=== PATIENT | female | born 1975 | race Hispanic/Latino ===

== ENCOUNTER 2019-02-02 11:37 | Emergency (ER) | payer OTHER ==
[2019-02-02 12:16] LABS: Absolute Lymphocytes (CBC) 1.5 K/uL (0.7-4.9); Basophils % 0.5 % (0-1.3); Hematocrit 40.9 % (36.0-45.0); MPV 9.3 fL (7.6-11.3); RBC Red Blood Cell Count 4.74 M/uL (3.86-4.86)
[2019-02-02 12:18] LABS: Protime INR 1.01
--- NOTE | 2019-02-02 12:23 | RAD REPORT ---
EXAM DESCRIPTION: CT - Ct Stroke Brain Wo Cont - 02/02/2019 12:13 pm CLINICAL HISTORY: Blurred vision, stroke-like symptoms, focal facial neurologic findings. CLINICAL HISTORY: None. TECHNIQUE: Axial 5 millimeter thick images of the head were obtained without IV contrast. All CT scans are performed using dose optimization technique as appropriate and may include automated exposure control or mA/KV adjustment according to patient size. FINDINGS: No intracranial hemorrhage, mass, or cerebral edema. No acute cortical based infarction. N o cortical edema or sulcal effacement. No extra-axial fluid collections. Toth matter-white matter di fferentiation is preserved. Ventricles are normal. No globe or orbital content abnormality. Mastoid air cells are clear. There is complete opacification of the left maxillary sinus with early t hickening or sclerotic changes to the sinus carbajal. Findings telephoned to the referring physician 12:18 p.m. IMPRESSION: No CT evidence of acute intracranial process. Ongoing concerns for acute CVA can be addressed with MR imaging. Chronic left maxillary sinusitis.
[2019-02-02 12:31] LABS: BUN Blood Urea Nitrogen 8 mg/dL (7-18); Bicarbonate 27 mmol/L (21-32); Creatine Phosphokinase 58 U/L (26-192); Glucose Level 163 mg/dL (74-106); Potassium 3.4 mmol/L (3.5-5.1); Sodium Level 139 mmol/L (136-145); Troponin (Emerg Dept Use Only) < 0.02 ng/mL (0.0-0.045)
--- NOTE | 2019-02-02 12:40 | RAD REPORT ---
EXAM DESCRIPTION: RAD - Chest Single View - 02/02/2019 12:28 pm CLINICAL HISTORY: Code stroke chest film, shortness of breath COMPARISON: March 2017 TECHNIQUE: AP portable chest image was obtained 1220 hours . FINDINGS: Lung volumes are low. No pulmonary edema, mass or focal infiltrate. Heart and vasculature are normal. No measurable pleural effusion and no pneumothorax. No acute bony abnormality seen. No ac estela aortic findings suspected. IMPRESSION: Shallow inspiration exam showing no acute cardiopulmonary finding.
[2019-02-02] MEDS ORDERED: CLOPIDOGREL 75 MG TABLET ONE (13:25)
--- NOTE | 2019-02-02 13:38 | EDPHYS ---
Physician Documentation [facility] Name: Andreia Claire Age: 43 yrs Sex: Female : 1975 Arrival Date: 02/02/2019 Time: 11:37 Bed 3 Private MD: ED Physician Willy Kraus HPI: 02/02 13:03 This 43 yrs old Female presents to ER via Wheelchair with complaints of rn Weakness. 13:03 The patient presents to the emergency department with weakness of the left upper rn extremity, left lower extremity, left side of the face. Onset: The symptoms/episode began/occurred yesterday. Associated signs and symptoms: Pertinent negatives: neck stiffness, loss of vision. Severity of symptoms: At their worst the symptoms were moderate in the emergency department the symptoms are unchanged. Current symptoms: paralysis or paresis, that is moderate. The patient has not experienced similar symptoms in the past. The patient has not recently seen a physician. Began at 1000 yesterday with weakness of left side of body, numbness, left facial droop. Has had stroke before, stopped taking plavix recently. Not improving so came in for eval. . CIRCULATING NURSE: 11:48 LMP N/A - Hysterectomy sr5 Historical: - Allergies: 11:48 Nubain; sr5 - PMHx: 11:48 Pneumonia; sr5 - PSHx: 11:48 Carpal Tunnel Repair; Knee surgery; Hysterectomy; ankle; Appendectomy; Cholecystectomy; sr5 - Immunization history:: Flu vaccine is not up to date. - Social history:: Smoking status: Patient/guardian denies using tobacco, never smoked. - Ebola Screening: : Patient negative for fever greater than or equal to 101.5 degrees Fahrenheit, and additional compatible Ebola Virus Disease symptoms. - Family history:: not pertinent. - Hospitalizations: : No recent hospitalization is reported. ROS: 13:03 Constitutional: Negative for fever, chills, and weight loss, Eyes: Negative for injury, rn pain, redness, and discharge, Cardiovascular: Negative for chest pain, palpitations, and edema, Respiratory: Negative for shortness of breath, cough, wheezing, and pleuritic chest pain, Abdomen/GI: Negative for abdominal pain, nausea, vomiting, diarrhea, and constipation, MS/Extremity: Negative for injury and deformity, Skin: Negative for injury, rash, and discoloration, Neuro: Negative for headache, and seizure. Exam: 13:03 Constitutional: This is a well developed, well nourished patient who is awake, alert, rn tearful Head/Face: Normocephalic, atraumatic. ENT: dry MM Cardiovascular: Regular rate and rhythm. No pulse deficits. Respiratory: No increased work of breathing, no retractions or nasal flaring. Abdomen/GI: soft, non-tender MS/ Extremity: Pulses equal, no cyanosis. Neurovascular intact. Full, normal range of motion. Equal circumference. Neuro: Awake and alert, GCS 15, oriented to person, place, time, and situation. + left lower facial droop and eneven smile. + left arm weakness with drift, LLE weakness with some effort against gravity, but rapidly falls to bed, decreased sensation to pain LUE/LLE. Vital Signs: 11:48 BP 101 / 75; Pulse 94; Resp 18; Temp 99.8; Pulse Ox 100% on R/A; Weight 81.65 kg (R); sr5 Height 5 ft. 6 in. (167.64 cm); Pain 9/10; 12:30 BP 96 / 80; Pulse 99; Resp 18; Pulse Ox 97% on R/A; vc 13:26 BP 93 / 62; Pulse 96; Resp 21 S; Pulse Ox 97% on R/A; jl7 14:30 BP 88 / 59; Pulse 93; Resp 20; Temp 99.1(O); Pulse Ox 98% on R/A; vc 15:00 BP 96 / 63; Pulse 94; Resp 20; Pulse Ox 98% on R/A; vc 11:48 Body Mass Index 29.05 (81.65 kg, 167.64 cm) sr5 NIH Stroke Scale Scores: 12:40 NIHSS Score: 6 vc 13:02 NIHSS Score: 6 rn MDM: 11:52 Patient medically screened. rn 12:19 ED course: No acute findings on CT brain. Symptoms present since yesterday, no rn indication for TPA at this point.. 13:20 ED course: Pt without improvement of symptoms, ct head negative, no neuro here, will turntable operator to [place] for neuro, she requests adan taylor, her neurologist is Dr. kwok. . 13:35 Data reviewed: vital signs, nurses notes, lab test result(s), EKG, radiologic studies, rn CT scan, and as a result, I will admit patient. Counseling: I had a detailed discussion with the patient and/or guardian regarding: the historical points, exam findings, and any diagnostic results supporting the discharge/admit diagnosis, lab results, radiology results, the need to transfer to another facility, [facility] does not immediately have the required specialist. Response to treatment: There is no appreciated change of the patient's symptoms at this time. ED course: Accepted for transfer to [facility]. . 02/02 11:59 Order name: Troponin (emerg Dept Use Only); Complete Time: 12:34 rn 02/02 11:59 Order name: CPK; Complete Time: 12:34 rn 02/02 11:59 Order name: Basic Metabolic Panel; Complete Time: 12:34 rn 02/02 11:59 Order name: CBC with Diff; Complete Time: 12:34 02/02 11:59 Order name: Protime (+inr); Complete Time: 12:34 rn 02/02 11:59 Order name: Ptt, Activated; Complete Time: 12:34 rn 02/02 11:59 Order name: CT Stroke Brain w/o Contrast; Complete Time: 12:34 rn 02/02 11:59 Order name: Stroke CXR 1 View; Complete Time: 12:50 rn 02/02 11:59 Order name: EKG; Complete Time: 12:01 rn 02/02 11:59 Order name: Accucheck; Complete Time: 12:04 rn 02/02 12:08 Order name: Glucose, Ancillary Testing; Complete Time: 12:34 EDID 02/02 13:25 Order name: Flu aa5 02/02 11:59 Order name: Cardiac monitoring; Complete Time: 12:33 rn 02/02 11:59 Order name: EKG - Nurse/Tech; Complete Time: 12:33 rn 02/02 11:59 Order name: IV Saline Lock; Complete Time: 12:33 rn 02/02 12:00 Order name: Labs collected and sent; Complete Time: 12:32 rn 02/02 12:00 Order name: NPO; Complete Time: 12:32 rn 02/02 12:00 Order name: O2 Per Protocol; Complete Time: 12:33 rn 02/02 12:00 Order name: O2 Sat Monitoring; Complete Time: 12:33 rn 02/02 12:00 Order name: Stroke Swallow Screen; Complete Time: 13:07 rn Administered Medications: 13:25 Drug: PlaVIX 75 mg Route: PO; Point of Care Testing: Blood Glucose: 11:57 Blood Glucose: 159 mg/dL; aa5 Ranges: Critical Glucose Levels:Adult <50 mg/dl or >400 mg/dl <40 mg/dl or >180 mg/dl Disposition: 02/02/19 13:37 Transfer ordered to Other Acute Care Facility. Diagnosis are Weakness, Facial weakness, Suspected ischemic stroke. - Reason for transfer: Higher level of care. - Accepting physician is Dr. Galeas. - Condition is Stable. - Problem is new. - Symptoms are unchanged. NIH Stroke Scale - NIH Stroke Score Date: 02/02/2019 Time: 12:40 Total Score = 6 1a. Level of Consciousness (LOC) - 0(Alert) 1b. Level of Consciousness (LOC) (Year \T\ Age) - 0(Both) 1c. LOC Commands (Open \T\ Closes Eyes/Fabric Separator Operator) - 0(Both) 2. Best Gaze (Lateral Gaze Paresis) - 0(Normal) 3. Visual Field Loss - 0(No visual loss) 4. Facial Palsy - 1(Minor Paralysis) 5a. Left Arm: Motor (10-second hold) - 1(Drift) 5b. Right Arm: Motor (10-second hold) - 0(No drift) 6a. Left Leg: Motor (5-second hold - always test supine) - 2(Drift, some effort against gravity) 6b. Right Leg: Motor (5-second hold - always test supine) - 0(No drift) 7. Limb Ataxia (finger/nose \T\ heel/mitchell - test with eyes open) - 0(Absent) 8. Sensory Loss (pinprick arms/legs/face) - 2(Severe to total loss) 9. Best Language: Aphasia (description/naming/reading) - 0(No aphasia) 10. Dysarthria (speech clarity - read or repeat words) - 0(Normal) 11. Extinction and Inattention (visual/tactile/auditory/spatial/personal) - 0(No abnormality) Initials: NIH Stroke Scale - NIH Stroke Score Date: 02/02/2019 Time: 13:02 Total Score = 6 1a. Level of Consciousness (LOC) - 0(Alert) 1b. Level of Consciousness (LOC) (Year \T\ Age) - 0(Both) 1c. LOC Commands (Open \T\ Closes Eyes/Fabric Separator Operator) - 0(Both) 2. Best Gaze (Lateral Gaze Paresis) - 0(Normal) 3. Visual Field Loss - 0(No visual loss) 4. Facial Palsy - 2(Partial paralysis) 5a. Left Arm: Motor (10-second hold) - 1(Drift) 5b. Right Arm: Motor (10-second hold) - 0(No drift) 6a. Left Leg: Motor (5-second hold - always test supine) - 2(Drift, some effort against gravity) 6b. Right Leg: Motor (5-second hold - always test supine) - 0(No drift) 7. Limb Ataxia (finger/nose \T\ heel/mitchell - test with eyes open) - 0(Absent) 8. Sensory Loss (pinprick arms/legs/face) - 1(Mild to moderate loss) 9. Best Language: Aphasia (description/naming/reading) - 0(No aphasia) 10. Dysarthria (speech clarity - read or repeat words) - 0(Normal) 11. Extinction and Inattention (visual/tactile/auditory/spatial/personal) - 0(No abnormality) Initials: rn Signatures: Dispatcher [employer] EDWilly Tan MD MD rn Resecker, Poncho RN RN sr5 Ellen Gaxiola RN RN vc Corrections: (The following items were deleted from the chart) 13:45 13:37 02/02/2019 13:37 Transfer ordered to Other Acute Care Facility. Diagnosis rn is Weakness; Facial weakness; Suspected ischemic stroke. Reason for transfer: Higher level of care. Accepting physician is . Condition is Stable. Problem is new. Symptoms are unchanged. rn 15:14 13:45 02/02/2019 13:37 Transfer ordered to Other Acute Care Facility. Diagnosis vc is Weakness; Facial weakness; Suspected ischemic stroke. Reason for transfer: Higher level of care. Accepting physician is Dr. Galeas. Condition is Stable. Problem is new. Symptoms are unchanged. rn
--- NOTE | 2019-02-02 13:38 | ER ---
Nurse's Notes [facility] Name: Andreia Claire Age: 43 yrs Sex: Female : 1975 Arrival Date: 02/02/2019 Time: 11:37 Bed 3 Private MD: Diagnosis: Weakness;Facial weakness;Suspected ischemic stroke Presentation: 02/02 11:40 Presenting complaint: Patient states: "feel like I'm gonna pass out and have a lot of sr5 pressure in my face" s/s started yesterday. Also reports "blurry vision". Denies recent falls, when asked about fever responded "the bed sheets were soaking wet". Clear speech, equal lamination spinner, unequal smile, able to raise eye brows equally. denies V/D. Transition of care: patient was not received from another setting of care. No acute neurological deficit is noted. An acute neurological deficit is present. The charge nurse has been notified. Onset of symptoms was February 01, 2019. Risk Assessment: Do you want to hurt yourself or someone else? Patient reports no desire to harm self or others. Initial Sepsis Screen: Does the patient meet any 2 criteria? HR > 90 bpm. Does the patient have a suspected source of infection? No. Patient's initial sepsis screen is negative. Care prior to arrival: None. 11:40 Method Of Arrival: Wheelchair sr5 11:40 Acuity: DUKE 2 sr5 12:00 The patients blood glucose was checked prior to arriving to the hospital and was found vc to be hyperglycemic. The patients blood glucose has been rechecked and is now normal. Triage Assessment: 11:48 The onset of the patients symptoms was February 01, 2019 at 10:00. General: Appears sr5 ill, Behavior is calm, cooperative. Pain: Complains of pain in right amish Pain does not radiate. Pain currently is 9 out of 10 on a pain scale. Quality of pain is described as pressure, Pain began 1 day ago. Is continuous. EENT: Reports blurred vision. Neuro: Reports blurred vision headache feels like "gonna pass out". TECHNICAL AGRONOMIST: 11:48 LMP N/A - Hysterectomy sr5 Stroke Activation: Symptom onset > 6 hours Physician: Stroke Attending; Name: ; Notified At: ; Arrived At: Physician: Chief Stroke Resident; Name: ; Notified At: ; Arrived At: Physician: Stroke Resident; Name: ; Notified At: ; Arrived At: Physician: ED Attending; Name: ; Notified At: ; Arrived At: Physician: ED Resident; Name: ; Notified At: ; Arrived At: Historical: - Allergies: 11:48 Nubain; sr5 - PMHx: 11:48 Pneumonia; sr5 - PSHx: 11:48 Carpal Tunnel Repair; Knee surgery; Hysterectomy; ankle; Appendectomy; Cholecystectomy; sr5 - Immunization history:: Flu vaccine is not up to date. - Social history:: Smoking status: Patient/guardian denies using tobacco, never smoked. - Ebola Screening: : Patient negative for fever greater than or equal to 101.5 degrees Fahrenheit, and additional compatible Ebola Virus Disease symptoms. - Family history:: not pertinent. - Hospitalizations: : No recent hospitalization is reported. Screenin:40 Abuse screen: Denies threats or abuse. Nutritional screening: No deficits noted. vc Tuberculosis screening: No symptoms or risk factors identified. Fall Risk Gait- Normal/Bed Rest/Wheelchair (0 pts). Assessment: 12:04 Reassessment: Patient to CT via stretcher. vc 12:04 VAN Scoring: Arm Drift: Minor drift vc 12:20 General: Appears in no apparent distress. uncomfortable, Behavior is cooperative, vc anxious. Pain: Complains of pain in generalized body pain. Neuro: Level of Consciousness is awake, alert, obeys commands, Oriented to person, place, time, Trace Evidence Technician are weak on left Weakness in right Reports blurred vision paresthesias since 1000 am on 02/01/2019. Cardiovascular: Patient's skin is warm and dry. Respiratory: Airway is patent Respiratory effort is even, unlabored. GI: No signs and/or symptoms were reported involving the gastrointestinal system. : No signs and/or symptoms were reported regarding the genitourinary system. EENT: left sided facial drooping. Derm: Skin is intact, is healthy with good turgor. Musculoskeletal: Range of motion: intact in all extremities. Musculoskeletal: Range of motion: limited in left side. 12:40 T-PA (Activase) Screening: Contraindications: Patient reports onset of signs and vc symptoms of stroke greater than 6 hours ago: Yes. 12:40 Patient has been NPO before screening. The patient is alert, and able to follow commands. The patient does not exhibit slurred or garbled speech. The patient is not exhibiting difficulty speaking. The patient does not exhibit difficulty understanding words. The patient is able to swallow own secretions with no drooling or need for suction. Patient tolerated one teaspoon of water. No drooling, immediate coughing, gurgling, or clearing of the throat was noted. The patient passed the bedside swallow screening. Oral medications may be given as ordered. Contact Physician for further diet orders. 12:40 The patient tolerated 90mL of water. No drooling, immediate coughing, gurgling, or vc clearing of the throat was noted. 12:42 Provider notified of bedside swallow screening results: Willy Kraus MD. 13:45 Reassessment: Patient is alert, oriented x 3, equal unlabored respirations, skin vc warm/dry/pink. Patient is resting with eyes closed, chest rising evenly. No signs or symptoms of distress. 14:56 Reassessment: Attempted to call report to [facility], will try again. 15:25 Reassessment: Attempted to call report to [facility], no response, called the transfer center, awaiting call back. 15:30 Reassessment: Nely from [facility] returned call for report. 15:44 Reassessment: EMS here to receive patient. Reassessment: Report given to SOFYA Mckay at [facility]. Reassessment:. Vital Signs: 11:48 BP 101 / 75; Pulse 94; Resp 18; Temp 99.8; Pulse Ox 100% on R/A; Weight 81.65 kg (R); sr5 Height 5 ft. 6 in. (167.64 cm); Pain 9/10; 12:30 BP 96 / 80; Pulse 99; Resp 18; Pulse Ox 97% on R/A; vc 13:26 BP 93 / 62; Pulse 96; Resp 21 S; Pulse Ox 97% on R/A; jl7 14:30 BP 88 / 59; Pulse 93; Resp 20; Temp 99.1(O); Pulse Ox 98% on R/A; vc 15:00 BP 96 / 63; Pulse 94; Resp 20; Pulse Ox 98% on R/A; vc 11:48 Body Mass Index 29.05 (81.65 kg, 167.64 cm) sr5 NIH Stroke Scale Scores: 12:40 NIHSS Score: 6 vc 13:02 NIHSS Score: 6 biology internship Course: 11:37 Patient arrived in ED. rg4 11:48 Triage completed. sr5 11:48 Arm band placed on right wrist. Patient placed in an exam room. sr5 11:52 Willy Kraus MD is Attending Physician. rn 12:00 Patient has correct armband on for positive identification. Placed in gown. Bed in low vc position. Call light in reach. Side rails up X2. 12:00 Initial lab(s) drawn, by me, sent to lab. Inserted saline lock: 18 gauge in left aa5 antecubital area, using aseptic technique. Blood collected. 12:03 Ellen Gaxiola RN is Primary Nurse. vc 12:04 Troponin (emerg Dept Use Only) Sent. vc 12:04 CPK Sent. vc 12:04 Basic Metabolic Panel Sent. vc 12:04 CBC with Diff Sent. vc 12:04 Protime (+inr) Sent. vc 12:04 Ptt, Activated Sent. vc 12:15 CT Stroke Brain w/o Contrast In Process Unspecified. EDMS 12:23 EKG done, by senior controls technician. reviewed by Willy Kraus MD. at1 12:28 X-ray completed. Portable x-ray completed in exam room. Patient tolerated procedure mh1 well. 12:29 Stroke CXR 1 View In Process Unspecified. EDMS 13:24 initiated a transfer with Matilda from the [facility]. eb 13:31 connected the neurologist sanitation supervisor for [facility] with Dr. Kraus for patient transfer eb consultation. 13:51 administrative approval given by Matilda Stallworth / patient has bee accepted to [facility] Neuro IMU bed 729/ Mayelin Sol has accepted the patient in transfer/ report to be called to [phone]. 15:14 No provider procedures requiring assistance completed. Patient transferred, IV remains vc in place. Administered Medications: 13:25 Drug: PlaVIX 75 mg Route: PO; vc Point of Care Testing: Blood Glucose: 11:57 Blood Glucose: 159 mg/dL; aa5 Ranges: Outcome: 13:37 ER care complete, transfer ordered by . rn 15:13 Transferred by ground EMS to [facility]. vc 15:13 Condition: good 15:13 Instructed on the need for transfer. 15:14 Patient left the ED. NIH Stroke Scale - NIH Stroke Score Date: 02/02/2019 Time: 12:40 Total Score = 6 1a. Level of Consciousness (LOC) - 0(Alert) 1b. Level of Consciousness (LOC) (Year \\T\\ Age) - 0(Both) 1c. LOC Commands (Open \\T\\ Closes Eyes/Director Of Channel Marketing) - 0(Both) 2. Best Gaze (Lateral Gaze Paresis) - 0(Normal) 3. Visual Field Loss - 0(No visual loss) 4. Facial Palsy - 1(Minor Paralysis) 5a. Left Arm: Motor (10-second hold) - 1(Drift) 5b. Right Arm: Motor (10-second hold) - 0(No drift) 6a. Left Leg: Motor (5-second hold - always test supine) - 2(Drift, some effort against gravity) 6b. Right Leg: Motor (5-second hold - always test supine) - 0(No drift) 7. Limb Ataxia (finger/nose \\T\\ heel/mitchell - test with eyes open) - 0(Absent) 8. Sensory Loss (pinprick arms/legs/face) - 2(Severe to total loss) 9. Best Language: Aphasia (description/naming/reading) - 0(No aphasia) 10. Dysarthria (speech clarity - read or repeat words) - 0(Normal) 11. Extinction and Inattention (visual/tactile/auditory/spatial/personal) - 0(No abnormality) Initials: NIH Stroke Scale - NIH Stroke Score Date: 02/02/2019 Time: 13:02 Total Score = 6 1a. Level of Consciousness (LOC) - 0(Alert) 1b. Level of Consciousness (LOC) (Year \\T\\ Age) - 0(Both) 1c. LOC Commands (Open \\T\\ Closes Eyes/Director Of Channel Marketing) - 0(Both) 2. Best Gaze (Lateral Gaze Paresis) - 0(Normal) 3. Visual Field Loss - 0(No visual loss) 4. Facial Palsy - 2(Partial paralysis) 5a. Left Arm: Motor (10-second hold) - 1(Drift) 5b. Right Arm: Motor (10-second hold) - 0(No drift) 6a. Left Leg: Motor (5-second hold - always test supine) - 2(Drift, some effort against gravity) 6b. Right Leg: Motor (5-second hold - always test supine) - 0(No drift) 7. Limb Ataxia (finger/nose \\T\\ heel/mitchell - test with eyes open) - 0(Absent) 8. Sensory Loss (pinprick arms/legs/face) - 1(Mild to moderate loss) 9. Best Language: Aphasia (description/naming/reading) - 0(No aphasia) 10. Dysarthria (speech clarity - read or repeat words) - 0(Normal) 11. Extinction and Inattention (visual/tactile/auditory/spatial/personal) - 0(No abnormality) Initials: rn Signatures: Dispatcher [employer] EDMS Lena Spain mh1 Willy Kraus MD MD rn Calderon, Audri RN RN aa5 Jeanne Winston, cable assembler and swager EKG Tat1 Poncho Garcia RN RN sr5 Talita Ulrich4 Hai Swanson RN RN jl7 Mignon Gaines Vanessa RN RN vc Corrections: (The following items were deleted from the chart) 11:55 11:40 Presenting complaint: Patient states: "feel like I'm gonna pass out and sr5 have a lot of pressure in my face" s/s started yesterday. Also reports "blurry vision". Denies recent falls, when asked about fever responded "the bed sheets were soaking wet". Clear speech, equal lamination spinner, unequal smile. denies V/D. sr5 15:01 13:51 administrative approval given by Matilda Stallworth / patient has bee accepted to [facility] Neuro IMU/ Mayelin Sol has accepted the patient in transfer/ report to be called to [phone]
[2019-02-02] MEDS ORDERED: DERMABOND SKIN ADHESIVE TOP ONE (15:59)
[2019-02-02 16:08] VITALS: TEMP 99.8
[2019-02-02 16:10] VITALS: BP 93/62; O2SAT 97
--- NOTE | 2019-02-03 13:51 | EKG ---
Test Date: 2019-02-02 Test Time: 12:21:07 Principal Account Clerk: LARRY MEASUREMENT RESULTS: Intervals: Rate: 100 MN: 138 QRSD: 74 QT: 336 QTc: 433 [place]: P: 8 MN: 138 QRS: -41 T: 30 INTERPRETIVE STATEMENTS: Normal sinus rhythm Left axis deviation Abnormal ECG Compared to ECG 04/06/2017 16:19:20 Left-axis deviation now present Electronically Signed On 02-03-19 13:47:04 RULING MACHINE OPERATOR by Lavell Abbasi
== END 2019-02-02 15:14 ==
LOC: ER 11:37
DX: R29.810 Facial weakness (principal); Z79.01 Long term (current) use of anticoagulants; Z88.8 Allergy status to other drugs, medicaments and biological substances; Z86.73 Personal history of transient ischemic attack (TIA), and cerebral infarction without residual deficits
CPT/HCPCS: 36415; 70450; 71045; 80048; 82550; 82947; 84484; 85025; 85610; 85730; 87804; 93005; 99285

== ENCOUNTER 2021-09-12 22:08 | Emergency (ER) | payer OTHER ==
--- OUTSIDE RECORDS SUMMARY | 2021-09-12 22:11 | XMS REPORT | Continuity of Care Document ---
:1975 Author Organization [facility] t Address [address] [place] [address] Dr. Morales [address] [place] [address] Care Team Providers Name Role Phone Unavailable Unavailable Unavailable Problems This patient has no known problems. Allergies, Adverse Reactions, Alerts This patient has no known allergies or adverse reactions. Medications This patient has no known medications. Procedures This patient has no known procedures. Encounters Start End Encounter Admission Attending Care Care Encounter Source Date/Time Date/Time Type Type Clinicians Facility Department ID 2019-02-03 2019-02-03 Outpatient [facility] MED [id number] [facility] 12:07:00 12:07:00 Results This patient has no known results.
[2021-09-12 23:14] LABS: Absolute Lymphocytes (CBC) 3.3 K/uL (0.7-4.9); Hematocrit 40.8 % (36.0-45.0); Lymphocytes % 27.3 % (15.3-44.8); MPV 9.2 fL (7.6-11.3)
[2021-09-12] MEDS ORDERED: NA CHLORIDE 0.9% 1,000 ML ONE (23:18)
[2021-09-12] MEDS ORDERED: MORPHINE 4 MG/ML SYR ONE (23:18)
[2021-09-12] MEDS ORDERED: ONDANSETRON 4 MG/2 ML VIAL ONE (23:18)
[2021-09-12 23:26] LABS: Urine Blood Trace-lysed (Negative); Urine Glucose Negative (Negative); Urine Protein 1+ (Negative); Urine Specific Gravity >=1.030 (1.005-1.030); Urine pH 5.5 (5.0-7.0)
[2021-09-12 23:33] LABS: Albumin 3.6 g/dL (3.4-5.0); Bilirubin Total 0.3 mg/dL (0.2-1.0); Potassium 3.3 mmol/L (3.5-5.1); Protein, Total 7.8 g/dL (6.4-8.2)
--- NOTE | 2021-09-13 01:05 | ER ---
Nurse's Notes [facility] Name: Andreia Claire Age: 45 yrs Sex: Female : 1975 Arrival Date: 09/12/2021 Time: 22:12 Bed 13 Private MD: Diagnosis: Abdominal pain, unspecified Presentation: 09/12 22:24 Chief complaint: Patient states: epigastric pain that radiates to left side of lg3 back/flank. this all started about 3 weeks ago and getting worse. Coronavirus screen: Client denies travel out of the [place] in the last 14 days. At this time, the client does not indicate any symptoms associated with coronavirus-19. Ebola Screen: No symptoms or risks identified at this time. Initial Sepsis Screen: Does the patient meet any 2 criteria? No. Patient's initial sepsis screen is negative. Does the patient have a suspected source of infection? No. Patient's initial sepsis screen is negative. Risk Assessment: Do you want to hurt yourself or someone else? Patient reports no desire to harm self or others. Onset of symptoms is unknown. 22:24 Method Of Arrival: Ambulatory lg3 22:24 Acuity: [facility] 3 lg3 Triage Assessment: 22:26 General: Appears in no apparent distress. uncomfortable, Behavior is calm, cooperative. lg3 Pain: Complains of pain in epigastric area Pain radiates to left flank. EENT: No deficits noted. No signs and/or symptoms were reported regarding the EENT system. Neuro: No deficits noted. Level of Consciousness is awake, alert, obeys commands, Oriented to person, place, time, situation. Cardiovascular: No deficits noted. Denies chest pain, shortness of breath, Capillary refill < 3 seconds Clubbing of nail beds is absent JVD is absent Patient's skin is warm and dry. Respiratory: No deficits noted. Airway is patent Trachea midline Respiratory effort is even, unlabored, Respiratory pattern is regular, symmetrical. GI: Abdomen is round non-distended, Reports upper abdominal pain, cramping, epigastric pain. : No deficits noted. No signs and/or symptoms were reported regarding the genitourinary system. Derm: No deficits noted. No signs and/or symptoms reported regarding the dermatologic system. Skin is intact, is healthy with good turgor, Skin is dry, Skin temperature is warm. Musculoskeletal: No deficits noted. No signs and/or symptoms reported regarding the musculoskeletal system. Circulation, motion, and sensation intact. Range of motion: intact in all extremities. 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 - Social history:: Smoking status: Patient denies any tobacco usage or history of. Patient/guardian denies using alcohol, street drugs. Screenin/06 01:36 Abuse screen: Denies threats or abuse. Nutritional screening: No deficits noted. ll3 Tuberculosis screening: No symptoms or risk factors identified. Fall Risk None identified. Assessment: 09/12 22:40 General: Appears uncomfortable, Behavior is calm, cooperative. Pain: Complains of pain ll3 in epigastric area Pain radiates to back Pain currently is 6 out of 10 on a pain scale. at worst was 10 out of 10 on a pain scale. Pain began 3 weeks ago, pain got worse 3 days ago. Neuro: Level of Consciousness is awake, alert, obeys commands, Oriented to person, place, time, situation. Respiratory: Respiratory effort is even, unlabored, Respiratory pattern is regular, symmetrical. GI: Abdomen is round non-distended, Reports epigastric pain, nausea, Patient currently denies constipation, diarrhea, vomiting. Derm: Skin is pink, warm \T\ dry. 09/13 00:10 Reassessment: No changes from previously documented assessment. Patient and/or family ll3 updated on plan of care and expected duration. Pain level reassessed. Patient is alert, oriented x 3, equal unlabored respirations, skin warm/dry/pink. Vital Signs: 09/12 22:24 BP 138 / 98; Pulse 94; Resp 18 S; Temp 98.7(O); Pulse Ox 100% on R/A; Weight 81.65 kg lg3 (R); Height 5 ft. 2 in. (157.48 cm) (R); Pain 8/10; 23:30 BP 142 / 88; Pulse 85; Resp 17; Pulse Ox 100% on R/A; ll3 08 00:41 BP 139 / 87; Pulse 80; Resp 18; Pulse Ox 100% on R/A; ll3 09/12 22:24 Body Mass Index 32.92 (81.65 kg, 157.48 cm) lg3 ED Course: 09/12 22:12 Patient arrived in ED. bp1 22:26 Triage completed. lg3 22:26 Arm band placed on left wrist. lg3 22:41 Thomas Novak NP is PHCP. pm1 22:41 Doni Billy MD is Attending Physician. pm1 23:08 Inserted saline lock: 22 gauge in right antecubital area, using aseptic technique. oe Blood collected. 23:20 Charly Landers, RN is Primary Nurse. ll3 09/13 00:04 CT Abd/Pelvis - IV Contrast Only In Process Unspecified. EDMS 01:36 Patient has correct armband on for positive identification. Bed in low position. Call ll3 light in reach. Side rails up X 1. 01:36 No provider procedures requiring assistance completed. IV discontinued, intact, ll3 bleeding controlled, No redness/swelling at site. Pressure dressing applied. Administered Medications: 09/12 23:21 Drug: NS 0.9% 1000 ml Route: IV; Rate: 1 bolus; Site: right antecubital; ll3 09/13 01:37 Follow up: Response: No adverse reaction; IV Status: Completed infusion; IV Intake: ll3 1000ml 09/12 23:21 Drug: Zofran (Ondansetron) 4 mg Route: IVP; Site: right antecubital; ll3 09/13 00:42 Follow up: Response: No adverse reaction ll3 09/12 23:21 Drug: morphine 4 mg Route: IVP; Infused Over: 4 mins; Site: right antecubital; ll3 09/13 00:42 Follow up: Response: No adverse reaction ll3 01:14 Not Given (Physician Discretion): fentaNYL (PF) 25 mcg IVP once pm1 01:14 Not Given (Physician Discretion): Zofran (Ondansetron) 4 mg IVP once; over 2 minutes pm1 Medication: 01:37 VIS not applicable for this client. ll3 Intake: 01:37 IV: 1000ml; Total: 1000ml. ll3 Outcome: 01:05 Discharge ordered by . pm1 01:36 Discharged to home ambulatory. ll3 01:36 Condition: stable 01:36 Discharge instructions given to patient, family, Instructed on discharge instructions, follow up and referral plans. Demonstrated understanding of instructions, follow-up care. 01:38 Patient left the ED. ll3 Signatures: Dispatcher [employer] EDMS Thomas Novak, MICHAEL POURER BULL LADLE pm1 Terry Moreira Lacie, RN RN lg3 Yudi Reyes Lynsea, RN RN ll3
--- NOTE | 2021-09-13 01:05 | EDPHYS ---
Physician Documentation [facility] Name: Andreia Claire Age: 45 yrs Sex: Female : 1975 Arrival Date: 09/12/2021 Time: 22:12 Bed 13 Private MD: ED Physician Doni Blily HPI: 09/12 22:53 This 45 yrs old Female presents to ER via Ambulatory with complaints of RUQ pm1 abdominal pain. 22:53 The patient presents with abdominal pain in the right upper quadrant. pm1 22:53 Onset: The symptoms/episode began/occurred 3 week(s) ago. The symptoms do not radiate. pm1 Associated signs and symptoms: Pertinent positives: nausea, Pertinent negatives: chest pain, constipation, diarrhea, fever, shortness of breath, vomiting. The symptoms are described as crampy, Bloated. Modifying factors: The symptoms are alleviated by nothing, the symptoms are aggravated by food. Severity of pain: in the emergency department the pain is actually worse. The patient has not experienced similar symptoms in the past. The patient has not recently seen a physician. 22:53 Patient reports her pain feels similar to prior pancreatitis a few months ago. pm1 SYSTEM DISPATCHER: 22:26 LMP N/A - Hysterectomy lg3 Historical: - Allergies: 22:26 Nubain; lg3 - Home Meds: 22:26 None [Active]; lg3 - PMHx: 22:26 Pneumonia; Depressive disorder; Anxiety; Fibromyalgia; lg3 - PSHx: 22:26 left knee; left ankle; bilateral wrist; partial hysterectomy; Cholecystectomy; lg3 Appendectomy; - Immunization history:: Adult Immunizations up to date, Client reports receiving the 2nd dose of the Covid vaccine, pfizer X2. - Social history:: Smoking status: Patient denies any tobacco usage or history of. Patient/guardian denies using alcohol, street drugs. ROS: 22:53 Constitutional: Negative for fever, chills, and weight loss, Cardiovascular: Negative pm1 for chest pain, palpitations, and edema, Respiratory: Negative for shortness of breath, cough, wheezing, and pleuritic chest pain. 22:53 Back: Negative for injury and pain, MS/Extremity: Negative for injury and deformity, Skin: Negative for injury, rash, and discoloration, Neuro: Negative for headache, weakness, numbness, tingling, and seizure. 22:53 Abdomen/GI: Positive for abdominal pain, nausea, Negative for vomiting, diarrhea, constipation. 22:53 All other systems are negative. Exam: 22:53 Constitutional: This is a well developed, well nourished patient who is awake, alert, pm1 and in no acute distress. Head/Face: Normocephalic, atraumatic. 22:53 Back: No spinal tenderness. No costovertebral tenderness. Full range of motion. Skin: Warm, dry with normal turgor. Normal color with no rashes, no lesions, and no evidence of cellulitis. MS/ Extremity: Pulses equal, no cyanosis. Neurovascular intact. Full, normal range of motion. 22:53 Eyes: Exam is negative for acute changes. 22:53 ENT: Mouth: Lips: normal, moist, Oral mucosa: normal, pink and intact, moist. 22:53 Cardiovascular: Exam negative for acute changes, Rate: normal, Rhythm: regular, Pulses: no pulse deficits are appreciated. 22:53 Respiratory: Exam negative for acute changes, respiratory distress, shortness of breath. 22:53 Abdomen/GI: Inspection: abdomen appears normal, Palpation: abdomen is soft and non-tender, in all quadrants. 22:53 Neuro: Exam negative for acute changes, Orientation: is normal, Mentation: is normal, Motor: moves all fours. Vital Signs: 22:24 BP 138 / 98; Pulse 94; Resp 18 S; Temp 98.7(O); Pulse Ox 100% on R/A; Weight 81.65 kg lg3 (R); Height 5 ft. 2 in. (157.48 cm) (R); Pain 8/10; 23:30 BP 142 / 88; Pulse 85; Resp 17; Pulse Ox 100% on R/A; ll3 09/13 00:41 BP 139 / 87; Pulse 80; Resp 18; Pulse Ox 100% on R/A; ll3 09/12 22:24 Body Mass Index 32.92 (81.65 kg, 157.48 cm) lg3 MDM: 09/12 22:47 Patient medically screened. pm1 09/13 01:04 Data reviewed: vital signs. Data interpreted: Pulse oximetry: on room air is 100 %. pm1 Interpretation: normal. Counseling: I had a detailed discussion with the patient and/or guardian regarding: the historical points, exam findings, and any diagnostic results supporting the discharge/admit diagnosis, lab results, radiology results, the need for outpatient follow up, to return to the emergency department if symptoms worsen or persist or if there are any questions or concerns that arise at home. 01:26 ED course: Patient's abdominal pain appears to be diet related. Discussed possibility pm1 of trying liquid diet due to bowel issues related to not having her gallbladder for patient. 09/12 22:53 Order name: CBC with Diff; Complete Time: 23:18 pm1 09/12 22:53 Order name: CMP; Complete Time: 00:10 pm1 09/12 22:53 Order name: Lipase; Complete Time: 00:10 pm1 09/12 22:53 Order name: CT Abd/Pelvis - IV Contrast Only pm1 09/12 23:26 Order name: Urine Dipstick-Ancillary; Complete Time: 23:28 EDMS 09/12 22:53 Order name: IV Saline Lock; Complete Time: 23:07 pm1 09/12 22:53 Order name: Labs collected and sent; Complete Time: 23:07 pm1 09/12 22:53 Order name: Urine Dipstick-Ancillary (obtain specimen); Complete Time: 23:27 pm1 09/12 22:53 Order name: Urine Test (obtain specimen); Complete Time: 23:27 pm1 Administered Medications: 09/12 23:21 Drug: NS 0.9% 1000 ml Route: IV; Rate: 1 bolus; Site: right antecubital; 3 09/13 01:37 Follow up: Response: No adverse reaction; IV Status: Completed infusion; IV Intake: ll3 1000ml 09/12 23:21 Drug: Zofran (Ondansetron) 4 mg Route: IVP; Site: right antecubital; ll3 09/13 00:42 Follow up: Response: No adverse reaction 3 09/12 23:21 Drug: morphine 4 mg Route: IVP; Infused Over: 4 mins; Site: right antecubital; ll3 09/13 00:42 Follow up: Response: No adverse reaction ll3 01:14 Not Given (Physician Discretion): fentaNYL (PF) 25 mcg IVP once pm1 01:14 Not Given (Physician Discretion): Zofran (Ondansetron) 4 mg IVP once; over 2 minutes pm1 Disposition: 07:09 Co-signature as Attending Physician, Doni Billy MD. 7 Disposition Summary: 09/13/21 01:05 Discharge Ordered Location: Home pm1 Problem: new pm1 Symptoms: have improved pm1 Condition: Stable pm1 Diagnosis - Abdominal pain, unspecified pm1 Followup: pm1 - With: Emergency Department - When: As needed - Reason: Worsening of condition Followup: pm1 - With: Private Physician - When: 2 - 3 days - Reason: Recheck today's complaints, Continuance of care, Re-evaluation by your physician Discharge Instructions: - Discharge Summary Sheet pm1 - Abdominal Pain, Adult pm1 Forms: - Medication Reconciliation Form pm1 - Thank You Letter pm1 - Antibiotic Education pm1 - Prescription Opioid Use pm1 Prescriptions: - dicyclomine 20 mg Oral Tablet - take 1 tablet by ORAL route every 6 hours As needed; 20 tablet; Refills: 0, pm1 Product Selection Permitted Signatures: Dispatcher [employer] EDMS Thomas Novak NP [employer] pm1 Gina Acevedo, RN RN 3 Doni Billy MD MD 7 Charly Landers RN RN ll3 Corrections: (The following items were deleted from the chart) 01:14 01:10 ED course: Patient requesting additional pain medicine prior to being discharged pm1 and also refill for her levsin 0.375 mg BID. pm1 01:14 01:10 fentaNYL (PF) 25 mcg IVP once ordered. pm1 pm1 01:14 01:11 Zofran (Ondansetron) 4 mg IVP once; over 2 minutes ordered. pm1 pm1 01:25 01:11 Zofran (Ondansetron) 4 mg IVP once; over 2 minutes ordered. pm1 pm1
[2021-09-13 04:14] VITALS: TEMP 98.7; O2SAT 100
[2021-09-13 04:19] VITALS: BP 139/87
--- NOTE | 2021-09-13 19:29 | RAD REPORT ---
EXAM DESCRIPTION: CT Abdomen and Pelvis With Intravenous Contrast CLINICAL HISTORY: The patient is 45 years old and is Female; Epigastric pain TECHNIQUE: Axial computed tomography images of the abdomen and pelvis with intravenous contrast. S agittal and coronal reformatted images were created and reviewed. This CT exam was performed using one or more of the following dose reduction techniques: automated exposure control, adjustment of t he mA and/or kV according to patient size, and/or use of iterative reconstruction technique. DLP: 1982 mGy*cm COMPARISON: None. FINDINGS: LUNG BASES: Mild right lung base atelectasis. No focal consolidation. HEART: Visualized heart is normal. ABDOMEN: LIVER: Hepatic steatosis. Right hepatic hemangioma measuring 2.1 cm. GALLBLADDER AND BILE DUCTS: Prior cholecystectomy. No ductal dilation. PANCREAS: Unremarkable. No mass. No ductal dilation. SPLEEN: Unremarkable. No splenomegaly. ADRENALS: Unremarkable. No mass. KIDNEYS AND URETERS: Unremarkable. No solid mass. No hydronephrosis. STOMACH AND BOWEL: Unremarkable. No obstruction. No mucosal thickening. PELVIS: APPENDIX: Prior appendectomy. BLADDER: Bladder is decompressed. REPRODUCTIVE: Prior hysterectomy. ABDOMEN and PELVIS: INTRAPERITONEAL SPACE: Unremarkable. No free air. No significant fluid collection. BONES/JOINTS: Small retrolisthesis of L4 on L5. Osteopenia and multilevel degenerative changes. No acute fracture. No dislocation. SOFT TISSUES: Fat-containing umbilical hernia. VASCULATURE: Unremarkable. No abdominal aortic aneurysm. LYMPH NODES: Unremarkable. No enlarged lymph nodes. IMPRESSION: 1. No acute abdominal or pelvic abnormality. 2. Hepatic steatosis. Right hepatic hemangioma measuring 2.1 cm. Electronically signed by: Gavino Petty DO 09/13/2021 12:40 AM CDT Due to temporary technical issues with the PACS/Fluency reporting system, reports are being signed by the in house radiologists without review as a courtesy to insure prompt reporting. The interpreting radiologist is fully responsible for the content of the report.
== END 2021-09-13 01:38 | disposition home or self-care (01) ==
LOC: ER 22:08
DX: R10.11 Right upper quadrant pain (principal); F32.A Depression, unspecified; F41.9 Anxiety disorder, unspecified; Z88.8 Allergy status to other drugs, medicaments and biological substances
CPT/HCPCS: 96361; 85025; 36415; 81003; 83690; 80053; 74177; 96375; 96374; 99284; Q9967; J7030; J2405

== ENCOUNTER 2021-09-17 21:10 | Observation (INO) | payer OTHER ==
--- OUTSIDE RECORDS SUMMARY | 2021-09-17 21:12 | XMS REPORT | Continuity of Care Document ---
:1975 Author Organization [facility] t Address [address] [place] [address] [address] [place] [address] Care Team Providers Name Role Phone Unavailable [...] Clinicians Facility Department ID 2019-02-03 2019-02-03 Outpatient [facility] MED [id number] [facility] 12:07:00 12:07:00 Results This patient has no known results.
[2021-09-17] MEDS ORDERED: ONDANSETRON 4 MG/2 ML VIAL ONE (23:22)
[2021-09-17] MEDS ORDERED: MORPHINE 4 MG/ML SYR ONE (23:22)
[2021-09-17] MEDS ORDERED: NA CHLORIDE 0.9% 1,000 ML ONE (23:23)
[2021-09-17] MEDS ORDERED: FAMOTIDINE 20 MG/2 ML VIAL IV ONE (23:23)
[2021-09-18 00:13] LABS: Protime INR 1.12
[2021-09-18 00:15] LABS: Absolute Lymphocytes (CBC) 2.6 K/uL (0.7-4.9); Hematocrit 39.8 % (36.0-45.0); Lymphocytes % 24.1 % (15.3-44.8); MCV 82.4 fL (80-100); RBC Red Blood Cell Count 4.82 M/uL (3.86-4.86)
[2021-09-18 00:28] LABS: ALT/SGPT 27 U/L (12-78); AST/SGOT 11 U/L (15-37); Albumin 3.7 g/dL (3.4-5.0); Alkaline Phosphatase 103 U/L (45-117); BUN Blood Urea Nitrogen 5 mg/dL (7-18); Bicarbonate 27 mmol/L (21-32); Bilirubin Total 0.4 mg/dL (0.2-1.0); Glomerular Filtration Rate 111 ml/min (=/>90); Glucose Level 101 mg/dL (74-106); Lipase 93 U/L (73-393); Magnesium 2.2 mg/dL (1.8-2.4); NT PRO-BNP 67 pg/mL (<125); Potassium 3.6 mmol/L (3.5-5.1); Protein, Total 8.2 g/dL (6.4-8.2); Sodium Level 140 mmol/L (136-145)
[2021-09-18 00:34] LABS: Bilirubin Direct < 0.1 mg/dL (0-0.2); Troponin High Sensitivity < 3.0 pg/mL (<58.9)
[2021-09-18 02:23] LABS: SARS-CoV-2 Antigen Rapid Res Negative (Negative)
--- NOTE | 2021-09-18 02:55 | EDPHYS ---
Physician Documentation [facility] Name: Andreia Claire Age: 45 yrs Sex: Female : 1975 Arrival Date: 09/17/2021 Time: 21:12 Bed 6 Private MD: JUAN C Physician Chase Leggett HPI: 09/17 22:35 This 45 yrs old Female presents to ER via Ambulatory with complaints of estella Abdominal Pain, Back Pain. 22:35 The patient presents with pain that is acute, with no known mechanism of injury. The estella symptoms are located in the thoracic area and lumbar area. Onset: The symptoms/episode began/occurred 3 day(s) ago. The pain does not radiate. Associated signs and symptoms: The patient has no apparent associated signs or symptoms. The problem was sustained from unknown cause. Modifying factors: The patient symptoms are alleviated by nothing, the patient symptoms are aggravated by nothing. The patient has not experienced similar symptoms in the past. 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 - Social history:: Smoking status: Patient denies any tobacco usage or history of. - Family history:: not pertinent. ROS: 09/17 22:35 Constitutional: Negative for fever, chills, and weight loss, Eyes: Negative for injury, estella pain, redness, and discharge, ENT: Negative for injury, pain, and discharge, Neck: Negative for injury, pain, and swelling, Cardiovascular: Negative for chest pain, palpitations, and edema, Respiratory: Negative for shortness of breath, cough, wheezing, and pleuritic chest pain, Back: Negative for injury and pain, : Negative for injury, bleeding, discharge, and swelling, MS/Extremity: Negative for injury and deformity, Skin: Negative for injury, rash, and discoloration, Neuro: Negative for headache, weakness, numbness, tingling, and seizure, Psych: Negative for depression, anxiety, suicide ideation, homicidal ideation, and hallucinations, Allergy/Immunology: Negative for hives, rash, and allergies, Endocrine: Negative for neck swelling, polydipsia, polyuria, polyphagia, and marked weight changes, Hematologic/Lymphatic: Negative for swollen nodes, abnormal bleeding, and unusual bruising. Abdomen/GI: Positive for abdominal pain, nausea and vomiting, of the epigastric area, right upper quadrant and left upper quadrant. Exam: 22:35 Constitutional: This is a well developed, well nourished patient who is awake, alert, estella and in no acute distress. Head/Face: Normocephalic, atraumatic. Eyes: Pupils equal round and reactive to light, extra-ocular motions intact. Lids and lashes normal. Conjunctiva and sclera are non-icteric and not injected. Cornea within normal limits. Periorbital areas with no swelling, redness, or edema. ENT: Nares patent. No nasal discharge, no septal abnormalities noted. Tympanic membranes are normal and external auditory canals are clear. Oropharynx with no redness, swelling, or masses, exudates, or evidence of obstruction, uvula midline. Mucous membranes moist. Neck: Trachea midline, no thyromegaly or masses palpated, and no cervical lymphadenopathy. Supple, full range of motion without nuchal rigidity, or vertebral point tenderness. No Meningismus. Chest/axilla: Normal chest wall appearance and motion. Nontender with no deformity. No lesions are appreciated. Cardiovascular: Regular rate and rhythm with a normal S1 and S2. No gallops, murmurs, or rubs. Normal PMI, no JVD. No pulse deficits. Respiratory: Lungs have equal breath sounds bilaterally, clear to auscultation and percussion. No rales, rhonchi or wheezes noted. No increased work of breathing, no retractions or nasal flaring. Back: No spinal tenderness. No costovertebral tenderness. Full range of motion. Skin: Warm, dry with normal turgor. Normal color with no rashes, no lesions, and no evidence of cellulitis. MS/ Extremity: Pulses equal, no cyanosis. Neurovascular intact. Full, normal range of motion. Neuro: Awake and alert, GCS 15, oriented to person, place, time, and situation. Cranial nerves II-XII grossly intact. Motor strength 5/5 in all extremities. Sensory grossly intact. Cerebellar exam normal. Normal gait. 22:35 Abdomen/GI: Inspection: abdomen appears normal, Bowel sounds: normal, Palpation: mild abdominal tenderness, moderate abdominal tenderness, in the epigastric area, right upper quadrant and left upper quadrant, Liver: no appreciated palpable abnormalities, Hernia: not appreciated. 09/18 02:47 ECG was reviewed by the Attending Physician. [facility] Vital Signs: 09/17 21:56 BP 142 / 88; Pulse 86; Resp 24 S; Temp 98.3(O); Pulse Ox 100% on R/A; Weight 81.65 kg bb (R); Height 5 ft. 6 in. (167.64 cm) (R); Pain 8/10; 09/18 00:03 BP 139 / 91; Pulse 84; Resp 16; Pulse Ox 100% on R/A; kl 00:11 BP 149 / 99; Pulse 84; Resp 18; Pulse Ox 97% on R/A; kd3 04:45 BP 130 / 80; Pulse 72; Resp 16; Pulse Ox 98% on R/A; Pain 3/10; kl 09/17 21:56 Body Mass Index 29.05 (81.65 kg, 167.64 cm) bb MDM: 09/17 22:25 Patient medically screened. [facility] 22:36 Differential diagnosis: Basilar Pneumonia Hydronephrosis Neoplasm Perforated Ulcer estella Renal Infarction sprain, Ureterolithiasis. Data reviewed: vital signs, nurses notes, lab test result(s), EKG, radiologic studies, CT scan, plain films. 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 Test interpretation: by ED physician or midlevel provider: ECG, plain radiologic studies. Counseling: I had a detailed discussion with the patient and/or guardian regarding: the historical points, exam findings, and any diagnostic results supporting the discharge/admit diagnosis, lab results, radiology results. 09/17 22:31 Order name: Basic Metabolic Panel; Complete Time: :40 [facility] 09/17 22:31 Order name: CBC with Diff; Complete Time: 00:22 estella 09/17 22:31 Order name: LFT's; Complete Time: 01:40 [facility] 09/17 22:31 Order name: Magnesium; Complete Time: :40 [facility] 09/17 22:31 Order name: NT PRO-BNP; Complete Time: 01:40 [facility] 09/17 22:31 Order name: PT-INR; Complete Time: 00:22 [facility] 09/17 22:31 Order name: Troponin HS; Complete Time: 01:40 [facility] 09/17 22:31 Order name: XRAY Chest (1 view) [facility] 09/17 22:31 Order name: Lipase; Complete Time: 01:40 [facility] 09/17 22:34 Order name: CT Chest, Abdomen, Pelvis - W/Contrast [facility] 09/17 22:34 Order name: SARS RAPID; Complete Time: 02:46 [facility] 09/17 22:31 Order name: EKG; Complete Time: 22:40 [facility] 09/17 22:31 Order name: Cardiac monitoring; Complete Time: 00:10 [facility] 09/17 22:31 Order name: EKG - Nurse/Tech; Complete Time: 00:11 [facility] 09/17 22:31 Order name: IV Saline Lock; Complete Time: 00:10 [facility] 09/17 22:31 Order name: Labs collected and sent; Complete Time: 00:10 [facility] 09/17 22:31 Order name: O2 Per Protocol; Complete Time: 00:10 [facility] 09/17 22:31 Order name: O2 Sat Monitoring; Complete Time: 00:11 [facility] 09/18 02:52 Order name: Urine Dipstick-Ancillary (obtain specimen) wm EC/11 02:47 Rate is 79 beats/min. Rhythm is regular. QRS [place] is Normal. [place] interval is normal. QRS estella interval is normal. QT interval is normal. No Q waves. T waves are Normal. No ST changes noted. Clinical impression: Normal ECG and No evidence of ischemia. Interpreted by me. Reviewed by me. Administered Medications: 09/17 23:40 Drug: Pepcid (famotidine) 20 mg Route: IVP; Site: right antecubital; kl 23:45 Drug: morphine 4 mg Route: IVP; Infused Over: 4 mins; Site: right antecubital; kl 23:48 Drug: Zofran (Ondansetron) 4 mg Route: IVP; Site: right antecubital; kl 23:52 Drug: NS 0.9% 1000 ml Route: IV; Rate: 1 bolus; Site: right antecubital; kl Disposition Summary: 09/18/21 02:54 Hospitalization Ordered Hospitalization Status: Observation estella Provider: Marek Castle cha Condition: Stable estella Problem: new estella Symptoms: have improved estella Bed/Room Type: Standard [facility] Location: [facility] ER HOLD(09/18/21 03:42) eb1 Room Assignment: ERHOLD-(09/18/21 03:42) eb1 Diagnosis - Abdominal pain, Generalized estella Discharge Instructions: - Discharge Summary Sheet estella - Abdominal Pain, Adult estella - Abdominal Pain, Adult, [id number] estella Forms: - Medication Reconciliation Form estella - SBAR form [facility] Prescriptions: - Pepcid 20 mg Oral Tablet - take 1 tablet by ORAL route every 12 hours for 10 days; 20 tablet; Refills: 0, estella Product Selection Permitted - Zofran 4 mg Oral Tablet - take 1 tablet by ORAL route every 12 hours As needed; 20 tablet; Refills: 0, [facility] Product Selection Permitted - dicyclomine 20 mg Oral Tablet - take 1 tablet by ORAL route 4 times per day; 28 tablet; Refills: 0, Product estella Selection Permitted Signatures: Dispatcher [employer] EDMS Michelle Macedo RN RN kl Anderson, Corey, MD MD cha Ballard, Brenda RN Renate Rashid RN RN eb1 Elyssa Solorio Kyli, RN RN [email or web address] Shelia Lira PA PA sb3 Corrections: (The following items were deleted from the chart) 22:52 22:34 Chest Single View ordered. EDOH EDOH 09/18 03:42 02:54 Telemetry/MedSurg (observation) [facility] eb1 03:42 02:54 [facility] eb1
--- NOTE | 2021-09-18 02:55 | ER ---
Nurse's Notes [facility] Name: Andreia Claire Age: 45 yrs Sex: Female : 1975 Arrival Date: 09/17/2021 Time: 21:12 Bed 6 Private MD: Diagnosis: Abdominal pain, Generalized Presentation: 09/17 21:56 Chief complaint: Patient states: she has been having abdominal pain for a while but now bb the pain is much worse she was seen here on Wednesday for same symptoms and dx with a partially collapsed lung and a hernia, denies vomiting and diarrhea or fever. Coronavirus screen: At this time, the client does not indicate any symptoms associated with coronavirus-19. Ebola Screen: No symptoms or risks identified at this time. Initial Sepsis Screen: Does the patient meet any 2 criteria? No. Patient's initial sepsis screen is negative. Does the patient have a suspected source of infection? No. Patient's initial sepsis screen is negative. Risk Assessment: Do you want to hurt yourself or someone else? Patient reports no desire to harm self or others. Onset of symptoms is unknown. 21:56 Method Of Arrival: Ambulatory 21:56 Acuity: [facility] 2 09/18 06:10 Note pt not in room. 06:12 Note called patient reports she went home did not want to be admitted and wait in the ER for a room reports removed own IV and put it in sharps container. 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 - Social history:: Smoking status: Patient denies any tobacco usage or history of. - Family history:: not pertinent. Screenin:12 Abuse screen: Denies threats or abuse. Denies injuries from another. Nutritional kd3 screening: No deficits noted. Tuberculosis screening: No symptoms or risk factors identified. Fall Risk IV access (20 points). Assessment: 00:12 General: Appears in no apparent distress. Behavior is calm, cooperative. Pain: kd3 Complains of pain in left upper quadrant and right upper quadrant and epigastric area and lumbar area and thoracic area. GI: Bowel sounds present X 4 quads. Abd is soft. 00:25 Reassessment: Patient and/or family updated on plan of care and expected duration. Pain kl level reassessed. Patient states feeling better. Patient states symptoms have improved. Vital Signs: 09/17 21:56 BP 142 / 88; Pulse 86; Resp 24 S; Temp 98.3(O); Pulse Ox 100% on R/A; Weight 81.65 kg bb (R); Height 5 ft. 6 in. (167.64 cm) (R); Pain 8/10; 09/18 00:03 BP 139 / 91; Pulse 84; Resp 16; Pulse Ox 100% on R/A; kl 00:11 BP 149 / 99; Pulse 84; Resp 18; Pulse Ox 97% on R/A; kd3 04:45 BP 130 / 80; Pulse 72; Resp 16; Pulse Ox 98% on R/A; Pain 3/10; kl 09/17 21:56 Body Mass Index 29.05 (81.65 kg, 167.64 cm) ED Course: 09/17 21:12 Patient arrived in ED. bp1 21:58 Triage completed. bb 21:58 Arm band placed on. bb 22:25 Chase Leggett MD is Attending Physician. [facility] 22:55 XRAY Chest (1 view) In Process Unspecified. EDMS 23:40 Inserted saline lock: 20 gauge in right antecubital area, using aseptic technique. 09/18 00:10 Veronica Hyde, RN is Primary Nurse. kd3 00:12 Patient has correct armband on for positive identification. kd3 00:12 No provider procedures requiring assistance completed. kd3 01:23 CT Chest, Abdomen, Pelvis - W/Contrast In Process Unspecified. EDMS 02:53 Marek Castle is Hospitalizing Provider. estella Administered Medications: 09/17 23:40 Drug: Pepcid (famotidine) 20 mg Route: IVP; Site: right antecubital; kl 23:45 Drug: morphine 4 mg Route: IVP; Infused Over: 4 mins; Site: right antecubital; kl 23:48 Drug: Zofran (Ondansetron) 4 mg Route: IVP; Site: right antecubital; 23:52 Drug: NS 0.9% 1000 ml Route: IV; Rate: 1 bolus; Site: right antecubital; Medication: 09/18 00:13 VIS not applicable for this client. kd3 Outcome: 02:54 Decision to Hospitalize by Provider. setella 06:13 Eloped from patient exam room, after seeing physician Time discovered patient gone: jim September 18, 2021 at 05:30 06:14 Patient left the ED. Signatures: Dispatcher [employer] EDMS Michelle Macedo, Chase Boss RN, MD MD cha Ballard, Brenda, RN RN Yudi Perdue Kyli RN RN kd3
--- NOTE | 2021-09-18 03:44 | P.HP ---
Certification for Inpatient Patient admitted to: Observation With expected LOS: <2 Midnights Patient will require the following post-hospital care: None Practitioner: I am a practitioner with admitting privileges, knowledge of patient current condition, hospital course, and medical plan of care. Services: Services provided to patient in accordance with Admission requirements found in Title 42 Section 412.3 of the Code of Federal Regulations Patient History Date of Service: 09/18/21 Reason for admission: Intractable Abdominal Pain History of Present Illness: Patient is a 45-year-old female fibromyalgia who presented to the ED with complaints of abdominal pain. Patient reports that she was seen here 5 days ago for the same complaint. CT was negative for acute findings and labs were within normal limits. She was discharged with bentyl. Today she states that her symptoms have persisted. She has no appetite and has not been eating very much. Her labs today are unremarkable. CT showed "mild haziness of the upper abdominal mesentery with shotty mesenteric lymph nodes. These findings could be seen with nonspecific mesenteritis/enteritis. Hepatic steatosis. Diverticulosis without evidence of acute diverticulitis." During my physical exam, patient reports pain generally throughout her lower abdomen. No rebound or guarding noted. Normoactive bowel sounds present in all 4 quadrants. She denies any recent changes in diet or medication. She has had both her gall bladder and appendix surgically removed in the past. ED provider wishes to admit patient for observation. Allergies nalbuphine [From Nubain] Allergy (Unverified 12/14/16 19:35) Unknown Home medications list reviewed: Yes - Past Medical/Surgical History Diabetic: No -: Fibromyalgia -: Acoustic Neuroma -: Depression/Anxiety -: Fibromyalgia -: Partial Hysterectomy -: Cholecystectomy -: Appendectomy -: Bilateral Ankle Surgery -: Bilateral Carpel Tunnel Psychosocial/ Personal History: Patient is and has 2 sons. - Family History Father -: Heart disease - Social History Smoking Status: Never smoker Alcohol use: No CD- Drugs: No Caffeine use: Yes Place of Residence: Home Review of Systems Gastrointestinal: Abdominal Pain, Diarrhea Physical Examination - Physical Exam General: Alert, In no apparent distress HEENT: Atraumatic, PERRLA, EOMI, Sclerae nonicteric Neck: Supple, 2+ carotid pulse no bruit, No LAD, Without JVD or thyroid abnormality Respiratory: Clear to auscultation bilaterally, Normal air movement Cardiovascular: Regular rate/rhythm, Normal S1 S2 Gastrointestinal: Normal bowel sounds, Soft and benign, Non-distended, No rebound, No guarding, Tenderness (mild) Musculoskeletal: No tenderness Integumentary: No rashes Neurological: Normal speech, Normal strength at 5/5 x4 extr, Normal tone, Normal affect - Studies Laboratory Data (last 24 hrs) 09/17/21 23:40: PT 12.3, INR 1.12 09/17/21 23:40: WBC 10.9, Hgb 13.8, Hct 39.8, Plt Count 302 09/17/21 23:40: Sodium 140, Potassium 3.6, BUN 5 L, Creatinine 0.63, Glucose 1 01, Magnesium 2.2, Total Bilirubin 0.4, AST 11 L, ALT 27, Alkaline Phosphatase 103, Lipase 93 Assessment and Plan - Problems (Diagnosis) (1) Enteritis Current Visit: Yes Status: Acute (2) Intractable abdominal pain Current Visit: Yes Status: Acute (3) Hepatic steatosis Current Visit: Yes Status: Acute (4) Diverticulosis Current Visit: Yes Status: Acute (5) Fibromyalgia Current Visit: Yes Status: Chronic - Plan -Patient admitted for intractable abdominal pain -Antibiotics not indicated at this time. CT nonspecific. -Will order stool studies, including cdiff -Clear liquid diet, advance as tolerated. Continue IV fluids -I counseled patient that she will likely need to follow up outpatient with GI. She has not had colonoscopy/endoscopy. -Pain control as needed -Monitor and replete electrolytes per protocol -Reconcile and continue home medications -Lovenox for VTE ppx -Full code Discharge Plan: Home Plan to discharge in: 24 Hours - Advance Directives Does patient have a Living Will: No Does patient have a Durable POA for Healthcare: No - Code Status/Comfort Care Code Status Assessed: Yes (Full) Critical Care: No Time Spent Managing Pts Care (In Minutes): 50
[2021-09-18 06:22] VITALS: TEMP 98.3
[2021-09-18 06:29] VITALS: BP 130/80; O2SAT 98
--- NOTE | 2021-09-18 14:32 | EKG ---
Test Date: 2021-09-17 Test Time: 23:24:00 [employer]: LENARD MEASUREMENT RESULTS: Intervals: Rate: 79 DE: 166 QRSD: 70 QT: 388 QTc: 444 [place]: P: 49 DE: 166 QRS: 2 T: 75 INTERPRETIVE STATEMENTS: Normal sinus rhythm Normal ECG Compared to ECG 02/02/2019 12:21:07 Left-axis deviation no longer present Electronically Signed On 09-18-21 14:30:26 CDT by Jerzy Hunter
--- NOTE | 2021-09-18 18:00 | RAD REPORT ---
EXAM DESCRIPTION: CT - Chest Abdomen Pelvis W Cont - 09/18/2021 5:50 am CLINICAL HISTORY: Abd pain COMPARISON: 09/12/2021 TECHNIQUE: CT of the chest, abdomen and pelvis performed following IV administration of iodinated co ntrast. This exam was performed according to our departmental dose-optimization program, which includ es automated exposure control, adjustment of the mA and/or kV according to patient size and/or use of iterative reconstruction technique. FINDINGS: Chest: Thyroid: No abnormalities of the visualized thyroid. Great Vessels: Great vessels have normal anatomic configuration. Thoracic Aorta: No abnormalities of the thoracic aorta identified. Pulmonary arteries: The main pulmonary artery is not dilated. Heart: No cardiomegaly, significant pericardial effusion, or coronary artery atherosclerosis Lymph Nodes: No enlarged mediastinal lymph nodes identified. Esophagus: No abnormalities of the esophagus identified Other: No additional findings. Lungs: No airspace opacities identified. Pleura: No pleural effusion or pneumothorax. Trachea/Airways: No abnormalities of the visualized trachea or airways. Abdomen: Liver: Decreased density of the liver.. 2.1 cm right hepatic hemangioma is stable.. Gallbladder: Prior cholecystectomy. Spleen, Pancreas, and Adrenal Glands: The spleen, pancreas, and adrenal glands are unremarkable. Kidneys: The kidneys have normal size and contour without evidence of solid mass or hydronephrosis. Vasculature: Aortoiliac atherosclerosis. IVC is unremarkable. The portal vein is patent. The proxim al visceral and renal arteries are patent. Stomach: The stomach and duodenum have normal course. Other: No free intraperitoneal air. Mild haziness of the upper abdominal mesentery with shotty me senteric lymph nodes Pelvis: Bladder: Urinary bladder is unremarkable. Bowel: No dilated loops of large or small bowel. Few scattered diverticula of the colon. Appendix: Prior appendectomy. Pelvis: Prior hysterectomy. Bones: T7 sclerotic focus demonstrates 4 years stability suggesting benign etiology. Mild multilevel endplate spondylosis. IMPRESSION: 1. Mild haziness of the upper abdominal mesentery with shotty mesenteric lymph nodes. These findings could be seen with nonspecific mesenteritis/enteritis. 2. Hepatic steatosis. 3. Diverticulosis without evidence of acute diverticulitis. Electronically signed by: Kevon May 09/18/2021 2:32 AM CDT Due to temporary technical issues with the PACS/Fluency reporting system, reports are being signed by the in house radiologists without review as a courtesy to insure prompt reporting. The interpreting radiologist is fully responsible for the content of the report.
--- NOTE | 2021-09-18 19:45 | RAD REPORT ---
EXAM DESCRIPTION: RAD - Chest Single View - 09/17/2021 10:53 pm CLINICAL HISTORY: 45 years Female, COUGH COMPARISON: Chest x-ray February 02, 2019 FINDINGS: No consolidation. No pneumothorax. No significant pleural effusion. Cardiomediastinal silhouette is unremarkable. Osseous structures demonstrate no acute findings. There is slight levocurvature of the midthoracic sp ine which may positional. IMPRESSION: No acute findings. Electronically signed by: Elias Dooley MD 09/17/2021 11:10 PM CDT Due to temporary technical issues with the PACS/Fluency reporting system, reports are being signed by the in house radiologists without review as a courtesy to insure prompt reporting. The interpreting radiologist is fully responsible for the content of the report.
== END 2021-09-18 05:30 | disposition left against medical advice (07) ==
LOC: ER 21:10 → ERHOLD 09-18 03:46
PROVIDERS: ADMIT Internal Medicine; ATTEND Internal Medicine
DX: K52.9 Noninfective gastroenteritis and colitis, unspecified (principal); K57.90 Diverticulosis of intestine, part unspecified, without perforation or abscess without bleeding; K76.0 Fatty (change of) liver, not elsewhere classified; M79.7 Fibromyalgia; D33.3 Benign neoplasm of cranial nerves; F32.A Depression, unspecified; F41.9 Anxiety disorder, unspecified; Z20.822 Contact with and (suspected) exposure to COVID-19; Z88.5 Allergy status to narcotic agent; Z90.710 Acquired absence of both cervix and uterus; Z90.49 Acquired absence of other specified parts of digestive tract; Z82.49 Family history of ischemic heart disease and other diseases of the circulatory system
CPT/HCPCS: 36415; 71045; 71260; 74177; 80048; 80076; 83690; 83735; 83880; 84484; 85025; 85610; 87811; 93005; J2405; J7030; Q9967